=== PATIENT | female | born 1985 | race Caucasian/White ===

== ENCOUNTER 2016-11-16 11:00 | Emergency (ER) | payer MEDICAID, OTHER ==
[2016-11-16 11:01] VITALS: BMI 26.6
--- NOTE | 2016-11-16 12:16 | ED PDOC ---
HPI: General Adult Time Seen by Provider: 11/16/16 11:38 Chief Complaint (Nursing): Wound Check Chief Complaint (Provider): left great toe injury History Per: Patient History/Exam Limitations: no limitations Onset/Duration Of Symptoms: Days Have you had recent travel within the past 21 days to any of the following countries: [place], [place], [place] or [place]?: No Additional History Per: Patient Additional Complaint(s): The patient is a 31yo female, no pertinent past medical history, was seen at [facility] on 11/14 for evaluation of injury to left great toe, involving the nail. Patient was informed to follow up with podiatry today however she reports the clinic was closed, prompting her visit to the ED. She reports her nail is persistently painful and "hanging off". She denies any fever, chills. She offers no additional medical complaints. Past Medical History Reviewed: Historical Data, Nursing Documentation, Vital Signs Vital Signs: Last Vital Signs Temp 97.6 F 11/16/16 14:45 Pulse 70 11/16/16 14:45 Resp 20 11/16/16 14:45 BP 136/71 11/16/16 14:45 Pulse Ox 100 11/16/16 14:45 - Medical History PMH: No Chronic Diseases - Surgical History Surgical History: No Surg Hx - Family History Family History: States: Unknown Family Hx - Home Medications Home Medications: Ambulatory Orders Medication Instructions Recorded Cephalexin [Keflex] 500 mg PO TID #21 capsule 11/16/16 Ibuprofen [Motrin Tab] 600 mg PO Q6 PRN #15 tab 11/16/16 traMADol [Ultram] 50 mg PO TID PRN #12 tab 11/16/16 - Allergies Allergies/Adverse Reactions: Allergies Allergy/AdvReac Type Severity Reaction Status Date / Time No Known Allergies Allergy Verified 11/16/16 14:46 Review of Systems ROS Statement: Except As Marked, All Systems Reviewed And Found Negative Constitutional: Negative for: Fever, Chills Musculoskeletal: Positive for: Other (left great toe pain) Physical Exam - Reviewed Vital Signs Reviewed: Yes - Physical Exam Appears: Positive for: Well, Non-toxic, No Acute Distress Extremity: Positive for: Normal ROM, Other (partial avulsion of nail on left great, no bleeding, some surrounding tenderness noted. Acrylic nails in place.) . Negative for: Deformity - ECG O2 Sat by Pulse Oximetry: 98 (RA) Pulse Ox Interpretation: Normal Medical Decision Making Medical Decision Making: Time: 1145 Impression: Left great toe injury Plan: -- Podiatry consult placed for wound evaluation and possible nail repair vs. removal Reassess Time: 1337 Patient see and evaluated by Podiatry resident who reports she will remove the patient's nail. Podiatry performed nail excision, nitrous oxide used on patient consent for anxiolysis and comfort. Tolerated well. Followup with podiatry team as directed. Pain control provided. Scribe Attestation: Documented by Cookie Johnson acting as a scribe for Lul Almazan DO. Provider Attestation: All medical record entries made by the Scribe were at my direction and personally dictated by me. I have reviewed the chart and agree that the record accurately reflects my personal performance of the history, physical exam, medical decision making, and the department course for this patient. I have also personally directed, reviewed, and agree with the discharge instructions and disposition. Disposition - Clinical Impression Clinical Impression: Nail avulsion of toe - Patient ED Disposition Is Patient to be Admitted: No Counseled Patient/Family Regarding: Studies Performed, Diagnosis, Need For Followup, Rx Given - Disposition Referrals: Podiatry Clinic [Outside] Disposition: Routine/Home Disposition Time: 14:45 Condition: STABLE Additional Instructions: Keep elevated, followup with podiatry as directed. Prescriptions: Cephalexin [Keflex] 500 mg PO TID #21 capsule Ibuprofen [Motrin Tab] 600 mg PO Q6 PRN #15 tab PRN Reason: Pain, Moderate (4-7) traMADol [Ultram] 50 mg PO TID PRN #12 tab PRN Reason: Pain, Moderate (4-7) Instructions: Toenail/Fingernail Removal (ED) Forms: [facility] (Guyanese), [facility] ED School/Work Excuse
--- NOTE | 2016-11-16 13:08 | CP.PCM.CON ---
History of Present Illness - History of Present Illness History of Present Illness: 31 year old female with no PMH presents to the ED for left nail avulsion of the great toe secondary to trauma. She states that she stubbed it 3 days ago against a metal bar at her aunt's place. She went to the [facility] ED, where her nail was attempted to be removed but unsuccessful because of the pain. She states she was given an injection at the arm and told to f/u in podiatry clinic today. There isn't podiatry clinic today so she stopped by the ED instead. She reports her pain 7/10 pain, describes the pain as a throbbing pain at the left big toe. She denies n/v/sob/cp/chills or f. PMH: none PSH: none Allergies: NKDA SH: denies smoking or elicited drug use; reports socially drinking FH: none Meds: control Past Patient History - Infectious Disease Hx of Infectious Diseases: None - Past Social History Smoking Status: Never Smoked - PSYCHIATRIC Hx Substance Use: No - ANESTHESIA Hx Anesthesia: No Meds Home Medications: Home Medication List Medication Instructions Recorded Confirmed Type Cephalexin [Keflex] 500 mg PO TID #21 capsule 11/16/16 Rx Ibuprofen [Motrin Tab] 600 mg PO Q6 PRN #15 tab 11/16/16 Rx traMADol [Ultram] 50 mg PO TID PRN #12 tab 11/16/16 Rx Allergies/Adverse Reactions: Allergies Allergy/AdvReac Type Severity Reaction Status Date / Time No Known Allergies Allergy Verified 11/16/16 14:46 Physical Exam - Constitutional Appears: Well, Non-toxic, Toxic - Extremities Exam Additional comments: Vasc: DP and PT 2/4 bilaterally, HERBICIDE SPRAYER <3 seconds, digit hair present x10 digits, no edema noted Ortho: severe pain ilicited upon palpation of the left hallux nail plate and surrounding tissue Neuro: gross sensation and protective sensation intact bilaterally Derm: Entire nail plate is detached from the nail bed medially 60%. Laterally 40 % nail plate attached from distal to proximal. Very mild serous drainage noted; macerated at the proximal nail folds noted; no erythema, no purulence, no edema , no odor noted; no clinical signs of infection noted. - Neurological Exam Neurological exam: Alert, Oriented x3 - Psychiatric Exam Psychiatric exam: Anxious - Skin Skin Exam: Normal Color, Warm Results - Vital Signs Recent Vital Signs: Last Vital Signs Temp 97.0 F L 11/16/16 11:22 Pulse 71 11/16/16 11:22 Resp 18 11/16/16 11:22 BP 148/91 H 11/16/16 11:22 Pulse Ox 98 11/16/16 12:19 Assessment & Plan - Assessment and Plan (Free Text) Assessment: 31 year old female with no PMH presents to the ED for left nail avulsion of the great toe secondary to trauma Plan: Pt was examined and seen Discussed plan with attending Dr. Concepcion X-rays ordered and reviewed- WNL, no bony pathology noted Pt was explained procedure, complete nail removal of left great toe, and post- operative course All pt's questions were answered to satisfaction Pt understands all risks, benefits, and complications of procedure 11 cc of 1:1 mixture of 2% lidocaine and .5% marcaine plain injected in a hallux local block Nitrous gas was used to calm patient throughout the entire process Digit tournique was used. Pt's foot was prep with betadine, proximal nail plate borders freed with a freer. Hemostat used to remove nail plate. Nail bed was cleansed with copious amounts of betadine and saline mixture. Triple antibiotics applied, dsd, cling, and coban. Keep dressing c/d/i. Don't get wet. Rec Keflex PO abx 7 days to ED Patient may weight bear as tolerated. Take Ibuprofen for pain and inflammation F/U in clinic in 1 week
[2016-11-16] MEDS ORDERED: Bupivacaine HCl 0.5% PF (30 ml) Inj ONE (13:22)
[2016-11-16] MEDS ORDERED: Povidone Iodine Topical 10% Sol ONE (13:23)
[2016-11-16] MEDS ORDERED: Lidocaine 1% Inj (20ml) ONE (13:23)
[2016-11-16] MEDS ORDERED: Bupivacaine HCl 0.5% PF (30 ml) Inj IJ ONE (13:28)
[2016-11-16] MEDS ORDERED: Lidocaine 1% Inj (20ml) IJ ONE (13:28)
[2016-11-16] MEDS ORDERED: Povidone Iodine Topical 10% Sol TOP ONE (13:30)
--- NOTE | 2016-11-16 14:20 | RAD ---
PROCEDURE: Left Foot Radiographs. HISTORY: left toe trauma r/o bony invovlement COMPARISON: None. FINDINGS: BONES: Normal. No fracture. No suspicious lytic or blastic change. JOINTS: A mild hallux valgus deformity is identified. SOFT TISSUES: Normal. OTHER FINDINGS: None. IMPRESSION: No acute fracture dislocation identified. A mild hallux valgus deformity is identified.
[2016-11-16 14:46] VITALS: BP 136/71; PULSE 70; RESP 20; TEMP 97.6
[2016-11-24 13:25] VITALS: O2SAT 98
== END 2016-11-16 15:45 | disposition home or self-care (01) ==
LOC: H.ER 11:00
DX: S99.922D Unspecified injury of left foot, subsequent encounter (principal); Z48.01 Encounter for change or removal of surgical wound dressing